=== PATIENT | male | born 1955 | race Two or more races ===

== ENCOUNTER 2017-04-18 15:34 | Emergency (ER) | payer BC ==
[2017-04-18] MEDS ORDERED: NORMAL SALINE 1000 ML 1,000 ML IV ONE (16:46)
--- NOTE | 2017-04-18 16:50 | ER Document Report ---
ED Medical Screen (RME) - General Chief Complaint: Fainting Stated Complaint: DIZZINESS/POSSIBLE POST COMPLICATIONS Time Seen by Provider: 04/18/17 16:45 Mode of Arrival: Wheelchair Information source: Patient TRAVEL OUTSIDE OF THE [place] IN LAST 30 DAYS: No - HPI Patient complains to provider of: dizziness/weakness Onset: Other - pt had surgery last month to repair a false aneurysm in L groin area in [place] -- has developed swelling and pain in this area over the past day. Also, c/o dizziness and weakness. - Related Data Allergies/Adverse Reactions: No Known Allergies Allergy (Unverified 04/18/17 15:47) Past Medical History Renal/ Medical History: Denies: Hx Peritoneal Dialysis Physical Exam - Vital signs Vitals: Temp Pulse Resp BP Pulse Ox 99.4 F 132 H 20 115/68 98 04/18/17 15:47 04/18/17 15:47 04/18/17 15:47 04/18/17 15:47 04/18/17 15:47 Course - Vital Signs Vital signs: Temp Pulse Resp BP Pulse Ox 99.4 F 132 H 20 115/68 98 04/18/17 15:47 04/18/17 15:47 04/18/17 15:47 04/18/17 15:47 04/18/17 15:47
[2017-04-18 17:39] LABS: HEMATOCRIT 33.1 % (37.9-51.0); HEMOGLOBIN 10.3 g/dL (13.5-17.0); HGB HCT DIFFERENCE -2.2; MEAN CORPUSCULAR HEMOGLOBIN 26.7 pg (27.0-33.4); MEAN CORPUSCULAR HGB CONC 31.2 g/dL (32.0-36.0); MEAN CORPUSCULAR VOLUME 86 fl (80-97); RED BLOOD COUNT 3.87 10^6/uL (4.35-5.55); RED CELL DISTRIBUTION WIDTH 17.4 % (11.5-14.0); WHITE BLOOD COUNT 18.3 10^3/uL (4.0-10.5)
[2017-04-18 17:53] LABS: APPEARANCE,URINE SLIGHTLY-CLOUDY; BILIRUBIN,URINE NEGATIVE (NEGATIVE); GLUCOSE, URINE NEGATIVE (NEGATIVE); KETONES,URINE NEGATIVE (NEGATIVE); LEUKOCYTE ESTERASE,URINE NEGATIVE (NEGATIVE); NITRITE,URINE NEGATIVE (NEGATIVE); PROTEIN,URINE 30 mg/dL (NEGATIVE); URINE SPECIFIC GRAVITY 1.018; UROBILINOGEN,URINE NEGATIVE mg/dL (<2.0)
[2017-04-18 18:02] LABS: BASOPHILS % (MANUAL) 0 % (0-2); EOSINOPHILS % (MANUAL) 0 % (0-6); LYMPHOCYTES % (MANUAL) 2 % (13-45); TOTAL CELLS COUNTED 100
[2017-04-18 18:03] LABS: HYPOCHROMASIA SLIGHT; POIKILOCYTOSIS 1+; POLYCHROMASIA SLIGHT; TARGET CELLS 1+; TOXIC GRANULATION SLIGHT
[2017-04-18] MEDS ORDERED: VANCOMYCIN HCL INJ 1000 MG VIAL IV ONE (18:17)
[2017-04-18] MEDS ORDERED: PIPERACILLIN/TAZOBACTAM 3.375 GM VIAL IV ONE (18:17)
--- NOTE | 2017-04-18 18:19 | ER Document Report ---
ED General - General Chief Complaint: Fainting Stated Complaint: DIZZINESS/POSSIBLE POST COMPLICATIONS Time Seen by Provider: 04/18/17 16:45 Mode of Arrival: Wheelchair Notes: 62-year-old male with bad peripheral vascular disease approximately 1 month postoperative from repair of a left femoral aneurysm presents with 1 day of weakness dizziness dehydration and increasing swelling and pain of the left groin. Symptoms are constant. Symptoms are worsening. Symptoms are associated with redness drainage and subjective fevers. No change in baseline neuropathy of feet bilaterally. Surgery was done at [facility]. TRAVEL OUTSIDE OF THE [place] IN LAST 30 DAYS: No - Related Data Allergies/Adverse Reactions: No Known Allergies Allergy (Unverified 04/18/17 15:47) Past Medical History - General Information source: Patient - Social History Smoking Status: Former Smoker Chew tobacco use (# tins/day): No Frequency of alcohol use: Occasional Drug Abuse: None Family History: None - Past Medical History Cardiac Medical History: Reports: Hx Heart Attack - March 2017, Hx Hypertension Pulmonary Medical History: Reports: Hx COPD Renal/ Medical History: Denies: Hx Peritoneal Dialysis Past Surgical History: Reports: Hx Vascular Surgery Review of Systems - Review of Systems Notes: REVIEW OF SYSTEMS GEN: Fever weakness ENT: Denies sore throat, nasal discharge, ear pain EYES: Denies blurry vision, eye pain, discharge CV: Denies chest pain, palpitations, edema RESP: Denies cough, shortness of breath, wheezing GI: Denies abdominal pain, nausea, vomiting, diarrhea MSK: Left groin pain swelling and redness SKIN: Denies rash, skin lesions LYMPH: Denies swollen glands/lymph nodes NEURO: Denies headache, focal weakness or numbness, positive dizziness PSYCH: Denies depression, suicidal or homicidal ideation PHYSICAL EXAMINATION General: No acute distress, well-nourished Head: Atraumatic, normocephalic ENT: Mouth normal, oropharynx moist, no exudates or tonsillar enlargement Eyes: Conjunctiva normal, pupils equal, lids normal Neck: No JVD, supple, no guarding CVS: Normal rate, regular rhythm, no murmurs Resp: No resp distress, equal and normal breath sounds bilaterally GI: Nondistended, soft, no tenderness to palpation, no rebound or guarding Ext: Significant fluctuant swelling redness and induration approximately 20 x 20 cm at the site of the left femoral surgical area, from the groin extending medially onto the pubic area but not into the scrotum. No pulse and dorsalis pedis which is baseline, normal cap refill. Back: No CVA or midline TTP Skin: No rash, warm Lymphatic: No lymphadeopathy noted Neuro: Awake, alert. Face symmetric. GCS 15. Physical Exam - Vital signs Vitals: Temp Pulse Resp BP Pulse Ox 99.4 F 132 H 20 115/68 98 04/18/17 15:47 04/18/17 15:47 04/18/17 15:47 04/18/17 15:47 04/18/17 15:47 Course - Re-evaluation Re-evalutation: 04/18/17 18:18 62-year-old male vasculopathic patient presents with dizziness and worsening swelling of his postop site at the site of a left femoral aneurysm repair. He is tachycardic and looks ill. He looks febrile and feels warm despite his lack of fever on our measurement. I will assume he is septic from a postoperative abscess but will rule out pseudoaneurysm at that site with a CT angiogram. Ordered full septic workup, ordered empiric antibiotics vancomycin and Zosyn. Will give fluid bolus. Patient will need to be transferred to [facility]. 04/18/17 20:45 Patient reassessed multiple times between 7:00 and 8:30 PM. His vitals have been improving. His labs show elevated white count. His CT shows either occluded pseudoaneurysm, but more likely abscess. He was given vancomycin and Zosyn. 845 I received a call back from Dr. Peace at [facility] who accepted the patient to the emergency department. was explained the situation. [place] form filled out. - Vital Signs Vital signs: Temp Pulse Resp BP Pulse Ox 99.1 F 132 H 20 147/94 H 100 04/18/17 19:09 04/18/17 15:47 04/18/17 20:09 04/18/17 20:09 04/18/17 20:09 - Laboratory Result Diagrams: 04/18/17 16:55 04/18/17 17:55 Laboratory results interpreted by me: 04/18/17 04/18/17 04/18/17 16:55 17:20 17:55 WBC 18.3 H RBC 3.87 L Hgb 10.3 L Hct 33.1 L MCH 26.7 L MCHC 31.2 L RDW 17.4 H Seg Neuts % (Manual) 92 H Lymphocytes % (Manual) 2 L Abs Neuts (Manual) 16.8 H Abs Lymphs (Manual) 0.4 L Sodium 128.0 L Chloride 94 L AST 82 H Creatine Kinase 308 H Urine Protein 30 H - Diagnostic Test Radiology reviewed: Image reviewed, Reports reviewed Critical Care Note - Critical Care Note Total time excluding time spent on procedures (mins): 35 Comments: The above patient is critically ill. Not including procedures, but including direct re-evaluations, speaking with patient and/or consultants, interpreting results, and documenting, I spent the total amount of minute listed listed above on critical care time Discharge - Discharge Clinical Impression: Post-operative wound abscess, Sepsis Referrals: CHAIM KUMARI MD [Primary Care Provider] - Follow up as needed
[2017-04-18 18:55] LABS: ALANINE AMINOTRANSFERASE 50 U/L (21-72); ALBUMIN 3.5 g/dL (3.5-5.0); ALKALINE PHOSPHATASE 123 U/L (38-126); ANION GAP 12 (5-19); ASPARTATE AMINO TRANSFERASE 82 U/L (17-59); BILIRUBIN,DIRECT 0.3 mg/dL (0.0-0.4); BILIRUBIN,TOTAL 0.4 mg/dL (0.2-1.3); BLOOD UREA NITROGEN 16 mg/dL (7-20); CARBON DIOXIDE 22 mmol/L (22-30); CHLORIDE 94 mmol/L (98-107); CREATINE KINASE 308 U/L (55-170); CREATININE RESULT 1.18 mg/dL (0.52-1.25); GLUCOSE 98 mg/dL (75-110); POTASSIUM 4.4 mmol/L (3.6-5.0)
[2017-04-18 19:07] LABS: CREATINE KINASE MB 3.32 ng/mL (<4.55); TROPONIN I 0.019 ng/mL
--- NOTE | 2017-04-18 19:56 | EKG REPORT ---
SEVERITY:- ABNORMAL ECG - SINUS RHYTHM LOW VOLTAGE IN FRONTAL LEADS NONSPECIFIC T ABNORMALITIES, INFERIOR LEADS : Confirmed by: Charlie Randolph MD 18-Apr-2017 19:55:27
--- NOTE | 2017-04-18 20:31 | RADIOLOGY REPORT (SQ) ---
EXAM DESCRIPTION: CTA ABD AORTA AND EXTREMITY COMPLETED DATE/TIME: 04/18/2017 8:06 pm REASON FOR STUDY: Recent left-sided groin aneurysm repair now with r COMPARISON: None. TECHNIQUE: CT scan of the body and lower extremities to the knees performed with intravenous contras t using helical scanning technique with dynamic intravenous contrast injection. Images reviewed with lung, soft tissue, and bone windows. Reconstructed coronal and sagittal MPR images reviewed. All imag es stored on PACS. All CT scanners at this facility use dose modulation, iterative reconstruction, and/or weight based d osing when appropriate to reduce radiation dose to as low as reasonably achievable (ALARA). [facility]: Dose Right [facility]: CareDose [facility]: Dose Right [facility]: Teradose 4D [facility]: Portr CONTRAST TYPE AND DOSE: contrast/concentration: Isovue 370.00 mg/ml; Total Contrast Delivered: 100.0 ml; Total Saline Delivered: 100.1 ml RENAL FUNCTION: BUN 16 creatinine 1.18. LIMITATIONS: None. FINDINGS: POST-CONTRAST IMAGING: AORTA AND VESSELS: No aneurysm. No dissection. Extensive calcifications. Bilateral iliac artery mg nts. LUNG BASES: No significant findings. No nodules or infiltrates. LIVER: Normal size. No masses or dilated ducts. SPLEEN: Normal size. No focal lesions. PANCREAS: No masses. No significant calcifications. No adjacent inflammation or peripancreatic fluid collections. Pancreatic duct not dilated. GALLBLADDER: No identified stones by CT criteria. No inflammatory changes to suggest cholecystitis. ADRENAL GLANDS: No significant masses or asymmetry. RIGHT KIDNEY AND URETER: No mass, calculi or urinary tract obstruction. LEFT KIDNEY AND URETER: No mass, calculi or urinary tract obstruction. RETROPERITONEUM: No retroperitoneal adenopathy, hemorrhage or masses. BOWEL AND PERITONEAL CAVITY: No masses or inflammatory changes. No free fluid or peritoneal masses. APPENDIX: Not visualized. ABDOMINAL WALL: No masses. No hernias. BONY STRUCTURES: No significant or acute findings. 3-D IMAGING: Confirms the above findings. OTHER: No other significant finding. RIGHT LEG: Aneurysmal dilation of the common femoral artery in the right groin, measuring 2.1 cm. T his is at the origin of a bypass graft. Occluded [place] vessel. Minimal contrast present in the lum en of the bypass graft which extends to the popliteal artery. LEFT LEG: Large unopacified fluid collection in the left groin measuring 4.4 cm, surrounding the com mon femoral artery. This could be a hematoma or occluded pseudoaneurysm. There is a patent bypass g raft extending from the left groin to the left popliteal artery. Occluded [place] vessel. IMPRESSION: 1. 4.4 CM UNOPACIFIED FLUID COLLECTION IN THE LEFT GROIN SURROUNDING THE COMMON FEMORAL ARTERY. THIS COULD BE HEMATOMA OR OCCLUDED PSEUDOANEURYSM. PATENT LEFT FEMORAL POPLITEAL BYPASS. 2. ANEURYSMAL DILATATION OF THE RIGHT COMMON FEMORAL ARTERY AT THE ORIGIN OF THE RIGHT FEMORAL POPLIT EAL BYPASS GRAFT. MINIMAL CONTRAST IN THE LUMEN WHICH MAY BE PARTIALLY OR ALMOST COMPLETELY OCCLUDED . 3. BILATERAL COMMON ILIAC ARTERY STENTS ARE PATENT. TECHNICAL DOCUMENTATION: JOB ID: [id number] Quality ID # [id number]: Final reports with documentation of one or more dose reduction techniques (e.g., Au tomated exposure control, adjustment of the mA and/or kV according to patient size, use of iterative reconstruction technique) 2010 [employer]- All Rights Reserved
--- NOTE | 2017-04-18 20:42 | ER Document Report ---
ED General - General Chief Complaint: Fainting Stated Complaint: DIZZINESS/POSSIBLE POST COMPLICATIONS Time Seen by Provider: 04/18/17 16:45 Mode of Arrival: Wheelchair TRAVEL OUTSIDE OF THE [place] IN LAST 30 DAYS: No - Related Data Allergies/Adverse Reactions: No Known Allergies Allergy (Unverified 04/18/17 15:47) Past Medical History - General Information source: Patient - Social History Smoking Status: Former Smoker Chew tobacco use (# tins/day): No Frequency of alcohol use: Occasional Drug Abuse: None Family History: None - Past Medical History Cardiac Medical History: Reports: Hx Heart Attack - March 2017, Hx Hypertension Pulmonary Medical History: Reports: Hx COPD Renal/ Medical History: Denies: Hx Peritoneal Dialysis Past Surgical History: Reports: Hx Vascular Surgery Physical Exam - Vital signs Vitals: Temp Pulse Resp BP Pulse Ox 99.4 F 132 H 20 115/68 98 04/18/17 15:47 04/18/17 15:47 04/18/17 15:47 04/18/17 15:47 04/18/17 15:47 Course - Vital Signs Vital signs: Temp Pulse Resp BP Pulse Ox 100.1 F 132 H 17 153/91 H 99 04/18/17 21:13 04/18/17 15:47 04/18/17 21:07 04/18/17 21:07 04/18/17 21:07 - Laboratory Result Diagrams: 04/18/17 16:55 04/18/17 17:55 Laboratory results interpreted by me: 04/18/17 04/18/17 04/18/17 16:55 17:20 17:55 WBC 18.3 H RBC 3.87 L Hgb 10.3 L Hct 33.1 L MCH 26.7 L MCHC 31.2 L RDW 17.4 H Seg Neuts % (Manual) 92 H Lymphocytes % (Manual) 2 L Abs Neuts (Manual) 16.8 H Abs Lymphs (Manual) 0.4 L Sodium 128.0 L Chloride 94 L AST 82 H Creatine Kinase 308 H Urine Protein 30 H Discharge - Discharge Clinical Impression: Post-operative wound abscess Qualifiers: Encounter type: initial encounter Qualified Code(s): T81.4XXA - Infection following a procedure, initial encounter Sepsis Qualifiers: Sepsis type: sepsis due to unspecified organism Qualified Code(s): A41.9 - Sepsis, unspecified organism Condition: Fair Disposition: [facility]LY [facility], [facility] Admitting Provider: dominic Referrals: CHAIM KUMARI MD [Primary Care Provider] - Follow up as needed
[2017-04-18 21:09] VITALS: BP 153/91
== END 2017-04-18 21:45 | disposition short-term general hospital (02) ==
LOC: ER 15:34
DX: T81.4XXA Infection following a procedure, initial encounter (principal); A41.9 Sepsis, unspecified organism; L02.416 Cutaneous abscess of left lower limb; Y83.8 Other surgical procedures as the cause of abnormal reaction of the patient, or of later complication, without mention of misadventure at the time of the procedure; I73.9 Peripheral vascular disease, unspecified; E86.0 Dehydration; R42 Dizziness and giddiness; R53.1 Weakness; J44.9 Chronic obstructive pulmonary disease, unspecified; I10 Essential (primary) hypertension; Z87.891 Personal history of nicotine dependence
CPT/HCPCS: 93005; 99291; 96361; 96375; 96365; 36415; 87040; 87070; 87205; 82553; 82550; 85025; 87077; 80053; 81001; 84484; 87186; 83605; 75635; 93010; J7030; J3370; J2543